=== PATIENT | female | born 1970 | race Caucasian/White ===

== ENCOUNTER → 2018-02-05 | Outpatient (CLI) | payer OTHER | LOC: M WHC 07:12 | DX: Z12.31 Encounter for screening mammogram for malignant neoplasm of breast (principal) | CPT/HCPCS: 77067 ==

== ENCOUNTER → 2019-09-01 | Outpatient (CLI) | payer OTHER ==
--- NOTE | 2019-09-01 15:53 | REPMRS ---
Patient History The patient states she had a clinical breast exam in 07/2019. Family history of breast cancer at age 40 in paternal aunt. Taking hormonal contraceptives for 4 years 7 months. 3D TOMOSYNTHESIS WAS PERFORMED. [facility] for [facility] cancer [facility] 15.9%. Digital Woman Screen Mammo: September 01, 2019 - Exam #: [id number] Bilateral CC and MLO view(s) were taken. Technologist: Georgia Olmstead, Technologist Prior study comparison: February 05, 2018, digital woman screen mammo performed at [facility]. March 25, 2014, bilateral bilat screen digital mammo, performed at [facility], [place] ([place]). FINDINGS: The breast tissue is heterogeneously dense. This may lower the sensitivity of mammography. There has been no change in the appearance of the mammogram from the prior studies. There is a moderate amount of residual fibroglandular tissue which is fairly symmetric. There is no interval development of dominant mass, areas of architectural distortion, or clustered microcalcification typical of malignancy. Assessment: BI-RADS/ACR category 1 mammogram. Negative Mammogram. Recommendation Routine screening mammogram in 1 year (for women over age 40). This mammogram was interpreted with the aid of an FDA-approved computer-aided dectection system. Electronically Signed By: Alphonso Urias MD 09/01/19 [id number]
== END ==
LOC: M WHC 15:05
PROVIDERS: ATTEND Nurse Practitioner Women's Health
DX: Z12.31 Encounter for screening mammogram for malignant neoplasm of breast (principal); Z79.3 Long term (current) use of hormonal contraceptives

== ENCOUNTER 2020-01-22 05:57 | Day surgery (SDC) | payer OTHER ==
[~2020-01-22] VITALS: Ht 154.9 cm; Wt 60.3 kg
[2020-01-22] VITALS (8 sets, daily range): BP systolic 104–150; BP diastolic 57–80
[~2020-01-22 05:57] MED LIST: CLAR5TAB PO; MAGN400C2 PO; PREVTAB2 PO; SING10TA32 PO; ZOCO20TA PO; ZOLO50TA PO
[2020-01-22] MEDS ORDERED: ceFAZolin SOD 2 GM in IV 1 EA IV ONE (06:00)
[2020-01-22] MEDS ORDERED: LR 1,000 ML IV ONE (06:00)
[2020-01-22] MEDS ORDERED: LIDOCAINE 1% MDV 20ML VIAL SQ PRN (06:00)
[2020-01-22 06:22] LABS: HEMATOCRIT 42.9 % (36.0-47.0); HEMOGLOBIN 13.5 g/dl (12.0-15.5); MEAN CORPUSCULAR HEMOGLOBIN 29.9 pg (27.0-33.0); MEAN CORPUSCULAR HGB CONC 31.5 g/dl (32.0-36.5); MEAN CORPUSCULAR VOLUME 95.1 fl (80.0-96.0); PLATELET COUNT, AUTOMATED 408 10^3/uL (150-450); RED BLOOD COUNT 4.51 10^6/uL (4.00-5.40); WHITE BLOOD COUNT 7.6 10^3/uL (4.0-10.0)
[2020-01-22] MEDS ORDERED: MIDAZOLAM INJ 2 MG/2 ML VIAL (J2250) As Ordered ONE (06:36)
[2020-01-22] MEDS ORDERED: ACETAMINOPHEN 1000MG 100ML IV BTL (OFIRMEV) (J0131 PER 10MG) As Ordered ONE (06:37)
[2020-01-22] MEDS ORDERED: PHENYLephrine HCL 500 MCG/5 ML (100MCG/ML) SYRINGE (J2370) As Ordered ONE (06:37)
[2020-01-22] MEDS ORDERED: ePHEDrine SULFATE 25 MG/5 ML(5MG/ML) SYRINGE As Ordered ONE (06:37)
[2020-01-22] MEDS ORDERED: fentaNYL 100 MCG/2 ML INJECTION (J3010) As Ordered ONE ×2 (06:37→09:26)
[2020-01-22] MEDS ORDERED: propofoL 200 MG/20 ML VIAL As Ordered ONE (06:38)
[2020-01-22] MEDS ORDERED: ROCURONIUM BROMIDE 50 MG/5 ML VIAL As Ordered ONE (06:38)
[2020-01-22] MEDS ORDERED: SUGAMMADEX SODIUM 500 MG/5 ML VIAL (BRIDION) As Ordered ONE (06:38)
[2020-01-22] MEDS ORDERED: ONDANSETRON 4MG/2ML VIAL (J2405) As Ordered ONE (06:38)
[2020-01-22] MEDS ORDERED: dexameTHASONE 4 MG/ML 1ML VIAL (J1100) As Ordered ONE (06:38)
[2020-01-22] MEDS ORDERED: LIDOCAINE 2% INJ 100 MG/5 ML SDV (FOR ANES.) As Ordered ONE (06:38)
[2020-01-22] MEDS ORDERED: ESMOLOL INJ 100MG/10ML VIAL As Ordered ONE (07:48)
[2020-01-22] MEDS ORDERED: KETOROLAC 60 MG/2 ML VIAL (J1885) As Ordered ONE (08:15)
[2020-01-22] MEDS: fentaNYL 100 MCG/2 ML INJECTION (J3010) IV PRN ×4 (09:25→09:40)
[2020-01-22] MEDS ORDERED: oxyCODONE 5MG TAB As Ordered ONE (09:26)
[2020-01-22] MEDS ORDERED: MORPHINE 1MG/ML IN 0.9% NACL 100ML IV BAG As Ordered ONE (09:28)
[2020-01-22] MEDS ORDERED: EPIDURAL/PCA KEYS XX PRN (09:30)
[2020-01-22] MEDS ORDERED: NALOXONE INJ 0.4 MG/1 ML VIAL (J2310) IV PRN (09:30)
[2020-01-22] MEDS: oxyCODONE 5MG TAB PO PRN ×2 (09:30→10:00)
[2020-01-22] MEDS ORDERED: LR 1,000 ML IV SCH (09:30)
[2020-01-22] MEDS ORDERED: ONDANSETRON 4MG/2ML VIAL (J2405) IV PRN (09:30)
[2020-01-22] MEDS ORDERED: NALBUPHINE HCL 10 MG/ML AMP (J2300) IV PRN (09:30)
[2020-01-22] MEDS ORDERED: MORPHINE 1MG/ML IN 0.9% NACL 100ML IV BAG IV PRN (09:30)
[2020-01-22] MEDS ORDERED: diphenhydrAMINE INJ 50MG/ML VIAL (J1200) IV PRN (09:30)
--- NOTE | 2020-01-22 16:15 | RO ---
DATE OF PROCEDURE: 01/22/2020 PREPROCEDURE DIAGNOSIS: Bleeding and pain. POSTPROCEDURE DIAGNOSIS: Bleeding and pain. PROCEDURE: Total vaginal hysterectomy with bilateral salpingectomy. SURGEON: Dr. Gloria Delcid [employer]ATION WORKER: None. ANESTHESIA: General endotracheal anesthesia. DESCRIPTION OF PROCEDURE: Kelsi was brought to the operating room where sufficient general endotracheal anesthesia was induced. She was prepped, draped and positioned in the usual sterile fashion with the bladder emptied. The anterior and posterior aspect of the cervix was grasped with a single-tooth tenaculum and a circumferential incision then made around the base of the cervix. Sharp and blunt dissection were used to isolate the cardinal ligaments, which were bilaterally clamped, transected and ligated using the RoseKatz clamps, which were used throughout and the SuperCut scissors and the #0 Vicryl suture, which was also used throughout. The anterior and posterior dissections were continued to create first the dissection of the posterior reflection of the peritoneum so that the uterosacrals could be clamped, transected, and ligated and held for later securing to the cuff. And then the anterior dissection continued to create the bladder flap and entered the peritoneum there and bilaterally, the uterine vasculature was carefully clamped, transected and ligated for control of the blood supply until the uterus could be delivered. We then used Juaquin clamps to bring down first the right tube, which we were able to get all of the fimbria on and then the left tube, which we were able to get just the beginning of the fimbria because it was so closely attached to the ovary, which the patient wanted to keep. We did not want to risk injuring the blood supply on that side, so we did not get all of the fimbria there, but we did get the tube, just not those ones that were attached there on the ovary itself. We then carefully examined those pedicles, found good hemostasis. Angle stitches of #0 Vicryl were taken. Of course, the uterosacrals were reincorporated and the vaginal cuff was closed with a running locked stitch of #0 Vicryl with good approximation and hemostasis achieved. Dozier was placed postoperatively with return of clear urine. The procedure was then ended. Estimated blood loss for the procedure: About 50 mL. Fluid replacement: Crystalloid. Complications: None. CONDITION AND DISPOSITION: Kelsi tolerated the procedure well and was recovering in the recovery room in good condition.
[2020-01-22] MEDS: IBUPROFEN 600 MG TAB PO PRN ×2 (16:56→23:10)
[2020-01-22] MEDS: LR 1,000 ML IV SCH ×2 (16:57→20:09)
[2020-01-22] MEDS: SIMVASTATIN 20 MG TAB PO SCH (20:08)
[2020-01-22] MEDS: MONTELUKAST 10 MG TAB PO SCH (20:09)
[2020-01-22] MEDS: SERTRALINE HCL 50 MG TAB PO SCH (20:09)
[2020-01-23] VITALS: BP 107/61
[2020-01-23 04:00] VITALS: BP 108/60
[2020-01-23] MEDS: LR 1,000 ML IV SCH (04:24)
[2020-01-23] MEDS: IBUPROFEN 600 MG TAB PO PRN (04:59)
[2020-01-23] MEDS ORDERED: NORCO, ANEXSIA 5/325MG TABLET (HYDROcodone/ACETAMINOPHEN) PO PRN (06:00)
[2020-01-23 06:20] LABS: HEMATOCRIT 32.4 % (36.0-47.0); MEAN CORPUSCULAR HEMOGLOBIN 30.8 pg (27.0-33.0); MEAN CORPUSCULAR HGB CONC 32.1 g/dl (32.0-36.5); MEAN CORPUSCULAR VOLUME 95.9 fl (80.0-96.0); PLATELET COUNT, AUTOMATED 323 10^3/uL (150-450); RED BLOOD COUNT 3.38 10^6/uL (4.00-5.40); WHITE BLOOD COUNT 11.7 10^3/uL (4.0-10.0)
[2020-01-23 06:32] LABS: HEMOGLOBIN 10.4 g/dl (12.0-15.5)
[2020-01-23 08:00] VITALS: BP 127/64
[2020-01-23] MEDS: SIMVASTATIN 20 MG TAB PO SCH (09:39)
[2020-01-23] MEDS: MONTELUKAST 10 MG TAB PO SCH (09:39)
[2020-01-23] MEDS: SERTRALINE HCL 50 MG TAB PO SCH (09:40)
[2020-01-23] MEDS ORDERED: NORC1TAB7 PO (10:18)
[2020-01-23] MEDS ORDERED: IBUP-1022 PO (10:18)
[2020-01-23 12:00] VITALS: BP 120/57
== END 2020-01-23 13:00 | disposition home or self-care (01) ==
LOC: M SDC 05:57 → M PED 11:50 → M SDC 01-23 13:00
PROVIDERS: ATTEND Obstetrics & Gynecology
DX: R10.2 Pelvic and perineal pain (principal); N93.9 Abnormal uterine and vaginal bleeding, unspecified; N72 Inflammatory disease of cervix uteri; N80.0 Endometriosis of uterus; E78.5 Hyperlipidemia, unspecified; I34.8 Other nonrheumatic mitral valve disorders; F41.9 Anxiety disorder, unspecified; Z88.1 Allergy status to other antibiotic agents; Z79.899 Other long term (current) drug therapy
CPT/HCPCS: 36415; 58262; 81025; 85027; 86850; 86900; 86901; 88307; 96360; 96361; J0131; J0690; J1100; J1885; J2250; J2370; J2405; J3010

== ENCOUNTER → 2020-02-04 | Outpatient (REF) | payer OTHER ==
[~2020-02-04] MED LIST changes: +IBUP-1022 PO; +NORC1TAB7 PO
[2020-02-04 17:10] LABS: APPEARANCE, URINE CLEAR (CLEAR); BACTERIA, URINE AUTO NEGATIVE (NEGATIVE); BILIRUBIN, URINE AUTO NEGATIVE (NEGATIVE); BLOOD, URINE BLOOD 2+ (NEGATIVE); COLOR, URINE YELLOW (YELLOW); GLUCOSE, URINE (UA) AUTO NEGATIVE (NEGATIVE); KETONE, URINE AUTO NEGATIVE (NEGATIVE); LEUKOCYTE ESTERASE, URINE AUTO TRACE (NEGATIVE); MUCUS, URINE SMALL (NEGATIVE); NITRITE, URINE AUTO NEGATIVE (NEGATIVE); PROTEIN, URINE AUTO NEGATIVE (NEGATIVE); RBC, URINE AUTO 13 /HPF (0-3); SPECIFIC GRAVITY URINE AUTO 1.011 (1.002-1.035); SQUAMOUS EPITHELIAL CELL UR AU 2 /HPF (0-6); UROBILINOGEN, URINE AUTO 0.2 mg/dL (0.0-2.0); WBC, URINE AUTO 2 /HPF (0-3)
== END ==
LOC: M LAB REF 16:48
PROVIDERS: ATTEND Obstetrics & Gynecology
DX: O03.38 Urinary tract infection following incomplete spontaneous abortion (principal)

== ENCOUNTER → 2022-01-03 | Outpatient (CLI) | payer OTHER | LOC: M WUC 14:37 | PROVIDERS: ATTEND Physician Assistant | DX: S50.01XA Contusion of right elbow, initial encounter (principal); X58.XXXA Exposure to other specified factors, initial encounter; Y92.9 Unspecified place or not applicable; Y93.9 Activity, unspecified; Y99.9 Unspecified external cause status ==

== ENCOUNTER → 2022-01-27 | Outpatient (CLI) | payer OTHER | LOC: M PLAIMG 14:55 | PROVIDERS: ATTEND Physician Assistant | DX: J32.0 Chronic maxillary sinusitis (principal) ==

== ENCOUNTER 2022-03-09 00:05 | Emergency (ER) | payer OTHER ==
[~2022-03-09] VITALS: Ht 154.9 cm; Wt 60.8 kg
[2022-03-09 01:40] LABS: BASO % 0.2 % (0.0-1.0); EOS # 0.1 10^3/uL (0.0-0.5); EOS % 1.2 % (0.0-3.0); HEMATOCRIT 40.2 % (36.0-47.0); LYMPH # 1.7 10^3/uL (1.5-5.0); MEAN CORPUSCULAR HEMOGLOBIN 30.3 pg (27.0-33.0); MEAN CORPUSCULAR HGB CONC 32.3 g/dl (32.0-36.5); MEAN CORPUSCULAR VOLUME 93.7 fl (80.0-96.0); MONO # 0.9 10^3/uL (0.0-0.8); MONO % 9.3 % (2.0-8.0); PLATELET COUNT, AUTOMATED 330 10^3/uL (150-450); RED BLOOD COUNT 4.29 10^6/uL (4.00-5.40); WHITE BLOOD COUNT 9.8 10^3/uL (4.0-10.0)
[2022-03-09 02:05] LABS: ALBUMIN 3.7 GM/DL (3.2-5.2); ALT/SGPT 28 U/L (12-78); BILIRUBIN,DIRECT < 0.1 MG/DL (0.0-0.2); BILIRUBIN,TOTAL 0.3 MG/DL (0.2-1.0); BLOOD UREA NITROGEN 10 MG/DL (7-18); CALCIUM LEVEL 8.9 MG/DL (8.5-10.1); CARBON DIOXIDE LEVEL 30 MEQ/L (21-32); CHLORIDE LEVEL 106 MEQ/L (98-107); CK-MB VALUE MASS < 1.0 NG/ML (<3.6); CPK CREATINE PHOSPHOKINASE 88 U/L (26-192); CREATININE FOR GFR 0.71 MG/DL (0.55-1.30); GLOMERULAR FILTRATION RATE > 60.0 (>51); GLUCOSE, FASTING 101 MG/DL (70-100); LIPASE 154 U/L (73-393); POTASSIUM SERUM 4.1 MEQ/L (3.5-5.1); SODIUM LEVEL 139 MEQ/L (136-145); TOTAL PROTEIN 7.3 GM/DL (6.4-8.2)
[2022-03-09 02:06] LABS: MB/CK RELATIVE INDEX 1.14 (< OR =4)
[2022-03-09 03:20] LABS: CK-MB VALUE MASS < 1.0 NG/ML (<3.6); CPK CREATINE PHOSPHOKINASE 77 U/L (26-192)
[2022-03-09] MEDS ORDERED: FAMOTIDINE IV BAG 20 MG in IV 1 EA IV ONE (06:20)
[2022-03-09] MEDS ORDERED: GI COCKTAIL 50ML BTL(HYOSCYAMINE/MAALOX/LIDOCAINE VISCOUS)(1:3:1) PO ONE (06:20)
[2022-03-09] MEDS ORDERED: NS 1,000 ML IV ONE (06:20)
[2022-03-09] MEDS ORDERED: FAMOTIDINE 20MG/2ML VIAL IVP ONE (07:50)
[2022-03-09] MEDS ORDERED: OMEP-173 PO (08:42)
[2022-03-09 09:30] VITALS: BP 105/69
== END 2022-03-09 09:49 | disposition home or self-care (01) ==
LOC: M ED 00:05
DX: K21.9 Gastro-esophageal reflux disease without esophagitis (principal); R07.89 Other chest pain; E78.5 Hyperlipidemia, unspecified; F41.9 Anxiety disorder, unspecified; Z88.8 Allergy status to other drugs, medicaments and biological substances; Z79.899 Other long term (current) drug therapy

== ENCOUNTER → 2022-03-27 | Outpatient (CLI) | payer OTHER ==
[~2022-03-27] MED LIST changes: +E-Z-GAS II EFFERVESCENT PACKET (SODIUM BICARB./CITRIC ACID/SIMETHICONE) As Ordered ONE; +E-Z-HD 98% w/w 340GM SUSP BTL As Ordered ONE; +E-Z-PAQUE 96% w/w SUSP 176GM BTL As Ordered ONE; +OMEP-173 PO
== END ==
LOC: M RAD 08:37
PROVIDERS: ATTEND Internal Medicine
DX: K44.9 Diaphragmatic hernia without obstruction or gangrene (principal); R19.2 Visible peristalsis

== ENCOUNTER → 2023-03-05 | Outpatient (REF) | payer OTHER ==
[~2023-03-05] MED LIST changes: -CLAR5TAB PO; +DESL5TAB28 PO; -E-Z-GAS II EFFERVESCENT PACKET (SODIUM BICARB./CITRIC ACID/SIMETHICONE) As Ordered ONE; -E-Z-HD 98% w/w 340GM SUSP BTL As Ordered ONE; -E-Z-PAQUE 96% w/w SUSP 176GM BTL As Ordered ONE; +MONT-5 PO; +SIMV-253 PO; -SING10TA32 PO; -ZOCO20TA PO
== END ==
LOC: M LAB REF 12:08
PROVIDERS: ATTEND Internal Medicine
DX: D64.9 Anemia, unspecified (principal)